=== PATIENT | female | born 1990 | race Caucasian/White ===

== ENCOUNTER 2020-11-02 12:26 | Emergency (ER) | payer OTHER ==
[~2020-11-02] VITALS: Ht 175.3 cm; Wt 79.4 kg
[~2020-11-02 12:26] MED LIST: ANUSOL-HC25 MG RECTAL
[2020-11-02 13:40] VITALS: BP 122/68
[2020-11-02 16:32] LABS: ABSOLUTE NEUTROPHILS 6.7 thou/uL (1.4-8.2); BASOPHILS 0.6 % (0.0-2.0); EOSINOPHILS 0.8 % (0.0-3.0); HEMOGLOBIN 14.7 gm/dL (12.0-15.0); LYMPHOCYTES 25.7 % (24.0-44.0); MCH 29.2 pg (26.0-34.0); MCHC 34.1 g/dL (28.0-37.0); MCV 85.7 fL (80.0-100.0); MONOCYTES 7.4 % (1.0-8.0); PLATELET COUNT 351 thou/uL (150-400); POLYS 65.5 % (36.0-66.0); RBC 5.02 mil/uL (4.20-5.00); RDW 13.1 % (10.5-14.5); WBC 10.3 thou/uL (4.0-11.0)
[2020-11-02 16:54] LABS: URINE BILIRUBIN NEGATIVE (Negative); URINE BLOOD NEGATIVE (Negative); URINE CLARITY CLEAR; URINE COLOR YELLOW; URINE GLUCOSE-RANDOM* NEGATIVE (Negative); URINE KETONES 1+ (Negative); URINE LEUKOCYTES-REFLEX NEGATIVE (Negative); URINE NITRITE-REFLEX NEGATIVE (Negative); URINE PROTEIN (DIPSTICK) 2+ (Negative); URINE UROBILINOGEN 0.2 E.U./dl (0.2-1.0)
[2020-11-02 16:55] LABS: CALCIUM 8.9 mg/dL (8.5-10.1); CREATININE 0.7 mg/dL (0.6-1.0); POTASSIUM 3.7 mmol/L (3.5-5.1)
[2020-11-02 17:00] LABS: ALBUMIN 4.2 g/dL (3.4-5.0); TOTAL BILIRUBIN 0.5 mg/dL (0.2-1.0)
[2020-11-02 17:35] LABS: BACTERIA-REFLEX 1-9 Few /HPF (None Seen); CRYSTALS None Seen /LPF (None Seen); SQUAMOUS 0-3 Few /LPF (0-3); URINE RBC None Seen /HPF (NONE SEEN); URINE WBC-REFLEX 0-5 Rare /HPF (0-5)
[2020-11-02 17:36] LABS: HYALINE CASTS 4-10 Moderate /LPF (None Seen)
[2020-11-02] MEDS ORDERED: LIDOCAINE 2%2 %/5 GM TOP (18:19)
== END 2020-11-02 18:36 | disposition home or self-care (01) ==
LOC: ER 12:26
PROVIDERS: Physician Assistant
DX: N76.0 Acute vaginitis (principal); Z79.899 Other long term (current) drug therapy

== ENCOUNTER 2021-02-16 13:26 | Emergency (ER) | payer OTHER ==
[~2021-02-16] VITALS: Ht 175.3 cm; Wt 79.4 kg
[~2021-02-16 13:26] MED LIST changes: +LIDOCAINE 2%2 %/5 GM TOP
[2021-02-16 14:09] LABS: ABSOLUTE NEUTROPHILS 5.4 thou/uL (1.4-8.2); BASOPHILS 0.8 % (0.0-2.0); EOSINOPHILS 1.3 % (0.0-3.0); HEMATOCRIT 43.1 % (37.0-47.0); LYMPHOCYTES 21.3 % (24.0-44.0); MCH 27.9 pg (26.0-34.0); MCHC 32.6 g/dL (28.0-37.0); MCV 85.7 fL (80.0-100.0); MONOCYTES 8.3 % (1.0-8.0); PLATELET COUNT 332 thou/uL (150-400); POLYS 68.3 % (36.0-66.0); RBC 5.03 mil/uL (4.20-5.00); RDW 13.1 % (10.5-14.5); WBC 7.9 thou/uL (4.0-11.0)
[2021-02-16 14:26] LABS: ANION GAP 9 mmol/L (7-16); BUN 9 mg/dL (7-18); CALCIUM 8.8 mg/dL (8.5-10.1); CHLORIDE 107 mmol/L (98-107); CO2 28 mmol/L (21-32); CREATININE 0.7 mg/dL (0.6-1.0); GLUCOSE 100 mg/dL (74-106); POTASSIUM 4.2 mmol/L (3.5-5.1); SODIUM 144 mmol/L (136-145)
[2021-02-16 14:36] LABS: ALBUMIN 3.8 g/dL (3.4-5.0); SGOT 14 U/L (15-37); SGPT 16 U/L (30-65); TOTAL BILIRUBIN 0.3 mg/dL (0.2-1.0); TOTAL PROTEIN 7.4 g/dL (6.4-8.2)
--- NOTE | 2021-02-16 15:48 | EKG ---
[address] [address] ELECTROCARDIOGRAM REPORT Name: AVRIL ORELLANA Room #: [facility]andra[facility] [id number] Admission: 02/16/21 Attend Phys: Discharge: Date of : 88 Report #: [id number] [facility] ED Test Date: 2021-02-16 Test Time: 13:39:06 Pat Name: AVRIL ORELLANA Department: Room: Gender: F Blade Filer: ILYA : 1990 Requested By: Talat Lewis Order Number: [id number] MD: Rayray Becker Measurements Intervals [place] Rate: 97 P: 60 VT: 145 QRS: 4 QRSD: 97 T: 48 QT: 342 QTc: 435 Interpretive Statements Sinus rhythm No previous ECG available for comparison Electronically Signed On 02-16-2021 15:48:26 CDT by Rayray Becker [email or web address] <ELECTRONICALLY SIGNED> By: Rayray Becker MD, [facility] 02/16/21 1548 [id number] Rayray Becker MD, FACC /EPI
[2021-02-16 16:20] VITALS: BP 106/61
== END 2021-02-16 16:20 | disposition home or self-care (01) ==
LOC: ER 13:26
PROVIDERS: Emergency Medicine
DX: R07.89 Other chest pain (principal)